=== PATIENT | female | born 1995 | race Caucasian/White ===

== ENCOUNTER 2023-03-19 04:00 | Day surgery (SDC) | payer OTHER ==
[2023-03-19] VITALS (196 sets, daily range): BP systolic 88–133; BP diastolic 38–86
[~2023-03-19] VITALS: Ht 165.1 cm; Wt 61.8 kg
[2023-03-19 08:46] LABS: BASO% 0.3 % (0-3); HEMATOCRIT 41.6 % (37.0-47.0); HEMOGLOBIN 13.6 g/dl (12.0-16.0); MEAN CELL VOLUME 92.7 fL CALC (80.0-100.0); MEAN CORPUSCULAR HGB 30.3 pG CALC (26.0-32.0); MEAN CORPUSCULAR HGB CONC 32.7 g/dL CAL (32.0-36.0); NEUT# 2.17 thou/uL (2.00-7.15); NEUT% 69.7 % (42-76); RED BLOOD COUNT 4.49 mill/uL (4.20-5.60)
[2023-03-19 08:59] LABS: ALBUMIN 4.6 g/dL (3.2-5.0); ALKALINE PHOSPHATASE 71 u/l (38-126); ANION GAP 16 (6-22 (CALC)); BILIRUBIN, TOTAL 0.4 mg/dL (0.02-1.3); BUN 11 mg/dL (7-17); BUN/CREATININE RATIO 16 (12-20 (CALC)); CARBON DIOXIDE 22 mmol/l (22-30); CHLORIDE 106 mmol/l (95-108); CREATININE 0.7 mg/dL (0.5-1.0); GFR FOR AFR.AMER. > 60 ML/MIN (>=60 (CALC)); GFR OTHER RACES > 60 ML/MIN (>=60 (CALC)); POTASSIUM 4.3 mmol/l (3.5-5.1); SGOT/AST 89 u/l (14-36); SODIUM 139 mmol/l (137-146); TOTAL PROTEIN 8.1 g/dL (6.3-8.2)
[2023-03-19] MEDS ORDERED: XANAX2 MG PO (09:54)
[2023-03-19] MEDS ORDERED: KLONOPIN2 MG PO (14:27)
[2023-03-19] MEDS ORDERED: NALTREXONE50 MG PO (14:27)
[2023-03-19] MEDS ORDERED: CLONIDINE0.1 MG PO (14:27)
[2023-03-19 15:56] LABS: BASO% 0.2 % (0-3); HEMATOCRIT 36.5 % (37.0-47.0); HEMOGLOBIN 12.4 g/dl (12.0-16.0); MEAN CELL VOLUME 91.5 fL CALC (80.0-100.0); MEAN CORPUSCULAR HGB 31.1 pG CALC (26.0-32.0); MONO% 3.9 % (2-13); NEUT# 5.22 thou/uL (2.00-7.15); NEUT% 88.9 % (42-76); RED BLOOD COUNT 3.99 mill/uL (4.20-5.60); RED CELL DISTRI WIDTH 11.2 % (11.5-15.5)
[2023-03-20 03:43] VITALS: BP 103/45
[2023-03-20 05:00] LABS: HEMATOCRIT 31.6 % (37.0-47.0); HEMOGLOBIN 10.9 g/dl (12.0-16.0); IMMATURE GRANULOCYTES 0.2 % (0.0-5.0); LYMPH% 14.8 % (15-41); MEAN CELL VOLUME 90.8 fL CALC (80.0-100.0); MEAN CORPUSCULAR HGB 31.3 pG CALC (26.0-32.0); MEAN CORPUSCULAR HGB CONC 34.5 g/dL CAL (32.0-36.0); MONO% 2.3 % (2-13); NEUT# 4.31 thou/uL (2.00-7.15); NEUT% 82.7 % (42-76); RED BLOOD COUNT 3.48 mill/uL (4.20-5.60); RED CELL DISTRI WIDTH 11.1 % (11.5-15.5)
[2023-03-20 05:15] LABS: ALBUMIN 3.9 g/dL (3.2-5.0); ALKALINE PHOSPHATASE 61 u/l (38-126); ANION GAP 16 (6-22 (CALC)); BUN 7 mg/dL (7-17); BUN/CREATININE RATIO 12 (12-20 (CALC)); CARBON DIOXIDE 21 mmol/l (22-30); CHLORIDE 108 mmol/l (95-108); CREATININE 0.6 mg/dL (0.5-1.0); GFR FOR AFR.AMER. > 60 ML/MIN (>=60 (CALC)); GFR OTHER RACES > 60 ML/MIN (>=60 (CALC)); MAGNESIUM 1.9 mg/dL (1.6-2.3); POTASSIUM 3.8 mmol/l (3.5-5.1); SGOT/AST 72 u/l (14-36); SODIUM 141 mmol/l (137-146)
[2023-03-20 05:16] LABS: BILIRUBIN, TOTAL 0.2 mg/dL (0.02-1.3); TOTAL PROTEIN 6.3 g/dL (6.3-8.2)
[2023-03-20 07:02] VITALS: BP 117/55
== END 2023-03-20 15:01 | disposition home or self-care (01) | DRG 897 ==
LOC: ANR 04:00 → MS2 04:00 → ANR 07:00 → MS2 16:46 → ANR 03-20 15:01
PROVIDERS: ATTEND Anesthesiology
DX: F11.20 Opioid dependence, uncomplicated (principal)
CPT/HCPCS: J2354; J3475

== ENCOUNTER 2023-03-21 22:06 | Emergency (ER) | payer OTHER ==
[2023-03-21] VITALS (7 sets, daily range): BP systolic 100–126; BP diastolic 62–74
[~2023-03-21] VITALS: Ht 165.1 cm; Wt 59.0 kg
[~2023-03-21 22:06] MED LIST: CLONIDINE0.1 MG PO; KLONOPIN2 MG PO; NALTREXONE50 MG PO; XANAX2 MG PO
[2023-03-21 23:13] LABS: BASO% 0.2 % (0-3); HEMATOCRIT 31.9 % (37.0-47.0); HEMOGLOBIN 10.8 g/dl (12.0-16.0); IMMATURE GRANULOCYTES 0.2 % (0.0-5.0); LYMPH% 32.3 % (15-41); MEAN CELL VOLUME 92.2 fL CALC (80.0-100.0); MEAN CORPUSCULAR HGB 31.2 pG CALC (26.0-32.0); MEAN CORPUSCULAR HGB CONC 33.9 g/dL CAL (32.0-36.0); MONO% 6.6 % (2-13); NEUT# 2.85 thou/uL (2.00-7.15); NEUT% 60.7 % (42-76); RED BLOOD COUNT 3.46 mill/uL (4.20-5.60); RED CELL DISTRI WIDTH 11.7 % (11.5-15.5)
[2023-03-21 23:25] LABS: ANION GAP 13 (6-22 (CALC)); BUN 17 mg/dL (7-17); BUN/CREATININE RATIO 30 (12-20 (CALC)); CARBON DIOXIDE 23 mmol/l (22-30); CHLORIDE 110 mmol/l (95-108); CREATININE 0.6 mg/dL (0.5-1.0); GFR FOR AFR.AMER. > 60 ML/MIN (>=60 (CALC)); GFR OTHER RACES > 60 ML/MIN (>=60 (CALC)); POTASSIUM 3.6 mmol/l (3.5-5.1); SODIUM 142 mmol/l (137-146)
[2023-03-22] VITALS: BP 141/73
[2023-03-22] MEDS ORDERED: PHENERGAN25 MG RE ×2 (00:04→09:31)
[2023-03-22 00:09] VITALS: BP 141/73
== END 2023-03-22 00:22 | disposition home or self-care (01) | DRG 392 ==
LOC: ED 22:06
PROVIDERS: Family Medicine
DX: R11.2 Nausea with vomiting, unspecified (principal)